=== PATIENT | female | born 1980 | race Caucasian/White ===

== ENCOUNTER → 2017-12-25 | Outpatient (CLI) | payer OTHER ==
[~2017-12-25] MED LIST: IOHEXOL 240 MG/ML 50ML VIAL. PO ONE; IOHEXOL 300 MG/ML 100ML VIAL. IV ONE
--- NOTE | 2017-12-25 12:23 | RAD ---
CT of the abdomen and pelvis with contrast, 12/25/2017: HISTORY: Left-sided abdominal pain Multidetector CT imaging was performed following oral and IV administration of contrast. No hepatic abnormality is seen. A small dense gallstone is present in the dependent aspect of the gallbladder. No pericholecystic edema or significant gallbladder wall thickening is evident. The pancreas is unremarkable. The spleen is of normal size. No renal abnormality is detected. The abdominal aorta is of normal caliber. No abdominal or pelvic adenopathy is seen. The uterus is within normal limits in size. Linear radiopacities related to the superior aspect of the uterus are probably fallopian tube occlusion devices. No ovarian abnormality is seen. There is a 4.7 cm smooth mass in the deep pelvis along the left side of the rectum and the posterior aspect of the left ovary. There appears to be a fat plane this mass from the ovary and the colon. The internal CT number of this mass ranges from 34-48 Hounsfield units, suggesting a solid mass versus complicated fluid. The bowel loops are not dilated. The cecum is directed superiorly in the subhepatic region adjacent to the gallbladder. No free air or free fluid is evident in the abdomen or pelvis. There is a mild lumbar scoliosis. 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 There is partial sacralization of L4. IMPRESSION: 1. Cholelithiasis. 2. Deep pelvic mass along the left side of the rectum as described above. Sonographic and/or MR scanning is suggested for further evaluation. 3. Mobile cecum directed superiorly in the right upper quadrant. 4. Lumbar vertebral developmental abnormalities. PQRS Compliance Statement: One or more of the following individualized dose reduction techniques were utilized for this examination: 1. Automated exposure control 2. Adjustment of the mA and/or kV according to patient size 3. Use of iterative reconstruction technique Electronically signed by: Al Milan MD (12/25/2017 12:21 PM) [facility]
== END | disposition home or self-care (01) ==
LOC: CT 08:55
PROVIDERS: ATTEND Internal Medicine Gastroenterology
DX: K80.80 Other cholelithiasis without obstruction (principal); M41.86 Other forms of scoliosis, lumbar region; R19.09 Other intra-abdominal and pelvic swelling, mass and lump
CPT/HCPCS: 74177; Q9966; Q9967

== ENCOUNTER 2020-11-10 09:49 | Day surgery (SDC) | payer OTHER ==
[~2020-11-10] VITALS: Ht 157.5 cm; Wt 100.0 kg
[~2020-11-10 09:49] MED LIST changes: +ACET325T9 PO; +ACETAMINOPHEN 500 MG TABLET PO ONE; +HYDROmorphone 2 MG/ML VIAL IVP PRN; -IOHEXOL 240 MG/ML 50ML VIAL. PO ONE; -IOHEXOL 300 MG/ML 100ML VIAL. IV ONE; +IV RINGERS,LACTATED 1000ML 1,000 ML IV SCH; +LORA10TA68 PO; +PROCHLORPERAZINE 10 MG/2 ML VIAL. IVP PRN; +fentaNYL PF VIAL 100 MCG/2 ML VIAL IVP PRN
[2020-11-10 10:20] VITALS: BP 122/78
--- NOTE | 2020-11-10 10:41 | NUR ---
ICG GREEN GIVEN PER ORDERS @ 1035. 2.5MG (1ML) GIVEN VIA IV IN LEFT WRIST WITHOUT DIFFICULTY
[2020-11-10] MEDS ORDERED: ONDANSETRON PF 4 MG/2 ML VIAL. ONE (10:52)
[2020-11-10] MEDS ORDERED: PROPOFOL 10 MG/ML (20ML) VIAL. IV ONE ×2 (10:52→12:16)
[2020-11-10] MEDS ORDERED: DEXAMETHASONE SOD PHOS 4 MG/ML VIAL ONE (10:52)
[2020-11-10] MEDS ORDERED: LIDOCAINE 2% PF 5 ML VIAL. ONE (10:52)
[2020-11-10] MEDS ORDERED: ROCURONIUM 50 MG/5 ML VIAL. ONE (10:53)
[2020-11-10] MEDS ORDERED: fentaNYL PF VIAL 100 MCG/2 ML VIAL ONE ×3 (10:54→13:24)
[2020-11-10] MEDS ORDERED: BUPIVACAINE-EPI 0.25%-1:200000 MPF 30 ML VIAL. ONE (11:05)
[2020-11-10] MEDS ORDERED: SURGICEL HEMOSTAT 4X8 EACH. ONE (11:05)
[2020-11-10] MEDS ORDERED: NEOSTIGMINE METHYLSULFATE 5 MG/5 ML SYRINGE. ONE (12:16)
[2020-11-10] MEDS ORDERED: GLYCOPYRROLATE 1 MG/5 ML VIAL. ONE (12:16)
[2020-11-10] MEDS ORDERED: KETOROLAC 30 MG/ML VIAL. ONE (12:23)
--- NOTE | 2020-11-10 12:30 | PDOC4 ---
Operative Note Operative Note Date: November 102020 at 1227 Preoperative diagnosis chronic cholecystitis cholelithiasis Postoperative diagnosis: Same Procedure: Laparoscopic cholecystectomy Surgeon: Mina Specimen: Gallbladder Dictation: Patient is 40-year-old female with right upper quadrant abdominal pain ultrasound showing gallstones. Procedure of laparoscopic cholecystectomy was explained to the patient detail risk benefits were also discussed including bleeding infection injury to intra-abdominal contents possible necessitating further open operations alternatives to this procedure also discussed with the patient who seemed to understand and gave both verbal and written consent to have the procedure performed. Patient was taken to the operating room placed in the supine position general anesthesia was initiated once patient was sleeping intubated her abdomen was prepped and draped usual sterile fashion using ChloraPrep. Area just below the umbilicus was injected with quarter percent Marcaine with epinephrine incision was made 11 blade scalpel and a varies needle was placed within the abdomen creating pneumoperitoneum once this was complete 11 mm port was placed and a 5 mm camera was placed within the abdomen which was inspected was noted there is quite a few adhesions from her transverse incision in the upper abdomen to the liver and abdominal wall. There was an open area within the right midabdomen where a 5 mm port was placed and a second 5 mm port was placed in the lower mid abdomen using a grasper and Endo Carlos scissors adhesions were taken down off the anterior abdominal wall freeing up space to the liver adhesions were taken off the liver with blunt and sharp dissection exposing the dome of the gallbladder the dome of the gallbladder is grasped retracted cephalad the adhesions of the gallbladder body were taken down with blunt dissection exposing the triangle. The adherent tissue the triangle taken down exposing the cystic duct and cystic artery both were doubly clipped and transected the gallbladder was taken off the liver with hook electrocautery placed within an Endo Catch bag removed from the umbilicus right upper quadrant was irrigated and suctioned dry hemostasis deemed be appropriate at that point the pneumoperitoneum was reduced all ports were removed the fascial defect at the umbilicus was closed with a [id number] 0 Vicryl suture and the skin was reapproximated all port sites for subcuticular Monocryl Mastisol Steri-Strips and island dressings were applied. Patient was awakened and extubated in the operating room taken to recovery in stable condition all sponge instrument needl e counts listed as correct estimated blood loss 20 mL. TAMMY DAUGHERTY MD Nov 10, 2020 12:29
[2020-11-10] MEDS ORDERED: SEVOFLURANE 61 TO 120 MINUTES. IH ONE (12:31)
[2020-11-10] MEDS ORDERED: HYDR-2761 PO (12:32)
--- NOTE | 2020-11-10 12:34 | DISCH ---
DISCHARGE INSTRUCTIONS Condition on Discharge Condition on Discharge: Stable Activity After Discharge Activity Instructions for Disc: Avoid exertion Other activity instructions: No lifting more than 20 pounds for 2 weeks Diet after Discharge Diet after Discharge: Low Fat Wound Incision Care Other wound/incision instructi: May shower in 24 hours Contacting the after DC Call your doctor for: If your condition worsens Follow-Up Follow up with: Dr. Daugherty in 2 weeks TAMMY DAUGHERTY MD Nov 10, 2020 12:34
[2020-11-10] MEDS ORDERED: HYDROcodone/APAP 5/325MG 1 TAB TABLET PO ONE ×2 (12:45→13:00)
[2020-11-10] MEDS ORDERED: MORPHINE SULFATE 2 MG/ML INJ. ONE (13:07)
[2020-11-10] MEDS: MORPHINE SULFATE 2 MG/ML INJ. IVP PRN ×2 (13:11→13:21)
[2020-11-10 13:48] VITALS: BP 120/61
--- NOTE | 2020-11-11 17:07 | PATHOLOGY ---
[facility] Accession Number: [id number] . 01 Material submitted: . gallbladder - GALLBLADDER AND CONTENTS . 01 Clinical history: . SYMPTOMATIC CHOLELITHIASIS LAP JOSE . 02 Diagnosis: Gallbladder, laparoscopic cholecystectomy: - Cholelithiasis. - Cholesterolosis, focal. - Chronic cholecystitis. ([facility]; 11/11/2020) [facility] 11/11/2020 1345 Local . 02 Comment: There is no evidence of malignancy. ([facility]; 11/11/2020) . 02 Electronically signed: . Imer Esteban MD, Pathologist NPI- [id number] . 01 Gross description: . Fixative: Formalin Labeled: Gallbladder and contents Specimen received: A previously disrupted gallbladder Dimensions: 4.5 x 3.3 x 2.5 cm Serosa: Kennedy-tay, smooth and well vascularized. Lymph node: Not identified Mucosa: Brown, focally effaced with focal yellow stippling Average wall thickness: 0.1 cm Calculi: Multiple black friable stones are identified measuring 2.5 x 2.0 x 0.9 cm in aggregate. Abnormalities: None identified A1- Milk Treater body, fundus, and the cystic duct margin. ([facility]; 11/10/2020) [facility] 11/10/20202051 Local . 02 Pathologist provided ICD-10: K80.10, K82.4 . 02 CPT . 232497 Specimen Comment: A courtesy copy of this report has been sent to [phone] Specimen Comment: Report sent to Performed at: [address], [place], [place] [id number] MD Miki Contreras MD Phone: [phone] Performed at: 02 [facility] [address], [place] [id number] MD Imer Esteban MD Phone: [phone]
== END 2020-11-10 14:15 | disposition home or self-care (01) ==
LOC: SURG 09:49
PROVIDERS: ATTEND Surgery
DX: K80.10 Calculus of gallbladder with chronic cholecystitis without obstruction (principal); I10 Essential (primary) hypertension; F41.9 Anxiety disorder, unspecified; F32.9 Major depressive disorder, single episode, unspecified; F17.210 Nicotine dependence, cigarettes, uncomplicated; Z87.440 Personal history of urinary (tract) infections; Z90.710 Acquired absence of both cervix and uterus; Z98.890 Other specified postprocedural states
CPT/HCPCS: 47562; A4364; A4930; A6219; J0690; J1100; J1885; J2270; J2405; J2704; J2710; J3010; J3490; A4657